=== PATIENT | female | born 1965 | race Caucasian/White ===

== ENCOUNTER → 2023-09-08 11:03 | Outpatient (REF) | payer BC, SELFPAY | LOC: HWWDC 11:03 | PROVIDERS: ATTENDING PHYSICIAN Obstetrics & Gynecology; FAMILY PHYSICIAN Student in an Organized Health Care Education/Training Program | DX: Z12.31 Encounter for screening mammogram for malignant neoplasm of breast (principal) | CPT/HCPCS: 77063; 77067 ==

== ENCOUNTER → 2024-04-03 09:36 | Outpatient (REF) | payer OTHER, SELFPAY | LOC: HWRAD 09:36 | PROVIDERS: ATTENDING PHYSICIAN Nurse Practitioner; FAMILY PHYSICIAN Student in an Organized Health Care Education/Training Program | DX: K76.89 Other specified diseases of liver (principal) | CPT/HCPCS: 74177; Q9967 ==

== ENCOUNTER → 2024-09-10 07:27 | Outpatient (REF) | payer OTHER, SELFPAY | LOC: HWWDC 07:27 | PROVIDERS: ATTENDING PHYSICIAN Obstetrics & Gynecology; FAMILY PHYSICIAN Student in an Organized Health Care Education/Training Program; REFERRING PHYSICIAN Obstetrics & Gynecology | DX: Z12.31 Encounter for screening mammogram for malignant neoplasm of breast (principal) | CPT/HCPCS: 77063; 77067 ==

== ENCOUNTER → 2024-09-17 09:26 | Outpatient (REF) | payer OTHER, SELFPAY | LOC: HWRAD 09:26 | PROVIDERS: ATTENDING PHYSICIAN Obstetrics & Gynecology; FAMILY PHYSICIAN Student in an Organized Health Care Education/Training Program | DX: M81.0 Age-related osteoporosis without current pathological fracture (principal) | CPT/HCPCS: 77080 ==

== ENCOUNTER → 2025-01-22 13:26 | Outpatient (REF) | payer OTHER, SELFPAY | LOC: HWRAD 13:26 | PROVIDERS: ATTENDING PHYSICIAN Student in an Organized Health Care Education/Training Program | DX: M25.552 Pain in left hip (principal) | CPT/HCPCS: 73522 ==

== ENCOUNTER 2025-03-11 12:13 | Outpatient (RCR) | payer OTHER, SELFPAY | END 2025-03-11 23:59 | disposition home or self-care (01) | LOC: RPT 12:13 | PROVIDERS: ATTENDING PHYSICIAN Student in an Organized Health Care Education/Training Program | DX: M25.552 Pain in left hip (principal); Z73.6 Limitation of activities due to disability; M62.81 Muscle weakness (generalized); R26.2 Difficulty in walking, not elsewhere classified; R20.2 Paresthesia of skin | CPT/HCPCS: 97110; 97112; 97162; 97530 ==

== ENCOUNTER 2025-04-08 08:32 | Outpatient (RCR) | payer OTHER, SELFPAY | END 2025-04-08 23:59 | disposition home or self-care (01) | LOC: RPT 08:32 | PROVIDERS: ATTENDING PHYSICIAN Family Medicine; FAMILY PHYSICIAN Student in an Organized Health Care Education/Training Program | DX: M25.552 Pain in left hip (principal); Z73.6 Limitation of activities due to disability; M62.81 Muscle weakness (generalized); R26.2 Difficulty in walking, not elsewhere classified; R20.2 Paresthesia of skin | CPT/HCPCS: 97110; 97112; 97530 ==

== ENCOUNTER 2025-04-30 12:10 | Outpatient (RCR) | payer OTHER, SELFPAY | END 2025-04-30 23:59 | disposition home or self-care (01) | LOC: RPT 12:10 | PROVIDERS: ATTENDING PHYSICIAN Family Medicine; FAMILY PHYSICIAN Student in an Organized Health Care Education/Training Program | DX: M25.552 Pain in left hip (principal); Z73.6 Limitation of activities due to disability; M62.81 Muscle weakness (generalized); R26.2 Difficulty in walking, not elsewhere classified; R20.2 Paresthesia of skin; I89.0 Lymphedema, not elsewhere classified; R10.22 Pelvic and perineal pain left side; Z85.42 Personal history of malignant neoplasm of other parts of uterus; Z92.3 Personal history of irradiation | CPT/HCPCS: 97110; 97112; 97140; 97164; 97530 ==

== ENCOUNTER 2025-05-13 14:00 | Outpatient (RCR) | payer OTHER, SELFPAY | END 2025-05-13 23:59 | disposition home or self-care (01) | LOC: RPT 14:00 | PROVIDERS: ATTENDING PHYSICIAN Family Medicine; FAMILY PHYSICIAN Student in an Organized Health Care Education/Training Program | DX: M25.552 Pain in left hip (principal); Z73.6 Limitation of activities due to disability; M62.81 Muscle weakness (generalized); R26.2 Difficulty in walking, not elsewhere classified; R20.2 Paresthesia of skin; I89.0 Lymphedema, not elsewhere classified; R10.22 Pelvic and perineal pain left side; Z85.42 Personal history of malignant neoplasm of other parts of uterus; Z92.3 Personal history of irradiation | CPT/HCPCS: 97140 ==